=== PATIENT | female | born 1990 | race Caucasian/White ===

== ENCOUNTER 2016-09-28 11:19 | Emergency (ER) | payer SELFPAY ==
[~2016-09-28] VITALS: Ht 175.3 cm; Wt 67.6 kg
--- NOTE | 2016-09-28 11:21 | NUR ---
PT BIB PD TO ER BED 15. PER REPORT, PT ALTERED RUNNING THROUGH TRAFFIC AND JUMPING FENCES. POSSIBLE SUBSTANCE ABUSE, ABRASION NOTED TO LOWER EXTREMITIES. PLACED ON MONITOR. STABLE VITALS AT THIS TIME. AWAITING MD GOODSON.
--- NOTE | 2016-09-28 11:30 | NUR ---
TRANSPORT NURSE AT BEDSIDE FOR BLOOD DRAW.
[2016-09-28 11:33] LABS: BASOPHILS # (AUTO) 0.1 /CMM (0.0-0.2); BASOPHILS % (AUTO) 0.6 % (0.0-2.0); EOSINOPHILS # (AUTO) 0.1 /CMM (0.0-0.7); EOSINOPHILS % (AUTO) 0.4 % (0.0-6.0); HEMATOCRIT 39 % (33-45); HEMOGLOBIN 13.3 g/dL (11.5-14.8); LYMPHOCYTES # (AUTO) 1.7 /CMM (0.8-4.8); LYMPHOCYTES % (AUTO) 10.8 % (20.0-44.0); MEAN CORPUSCULAR HEMOGLOBIN 30 PG (26.0-33.0); MEAN CORPUSCULAR HGB CONC 34 g/dl (31.0-36.0); MEAN CORPUSCULAR VOLUME 89 fL (82-100); MONOCYTES # (AUTO) 1.3 /CMM (0.1-1.30); MONOCYTES % (AUTO) 8.4 % (2.0-12.0); NEUTROPHILS # (AUTO) 12.4 /CMM (1.8-8.9); NEUTROPHILS % (AUTO) 79.8 % (43.0-81.0); PLATELET COUNT (AUTO) 272 /CMM (150-450); RDW COEFFICIENT OF VARIATION 12.1 (11.5-15.0); RED BLOOD CELL COUNT(AUTO) 4.44 MIL/uL (4.0-5.2); WHITE BLOOD COUNT (AUTO) 15.6 K/uL (4.3-11.0)
[2016-09-28 11:43] LABS: CALCIUM, SERUM 8.4 mg/dL (8.5-10.1); CARBON DIOXIDE 24 mmol/L (21-32); CHLORIDE 102 mmol/L (98-107); CREATININE 1.2 mg/dL (0.6-1.3); GLUCOSE 107 mg/dL (74-106); POTASSIUM 3.9 mmol/L (3.5-5.1); SODIUM SERUM 138 mmol/L (136-145); UREA NITROGEN, BLOOD 20 mg/dL (7-18)
[2016-09-28 11:47] LABS: BILIRUBIN,URINE Negative (NEGATIVE); BLOOD, URINE Trace-lysed Ery/uL (NEGATIVE); KETONES,URINE Negative (NEGATIVE); LEUKOCYTE ESTERASE ,URINE Negative (NEGATIVE); NITRITE, URINE Negative (NEGATIVE); PH,URINE 5.5 (5.0-8.0); PROTEIN,URINE 100 mg/dl (NEGATIVE); UGLUCOSE Negative (NEGATIVE); UROBILINOGEN,URINE 0.2 EU/dL (0.2)
[2016-09-28 11:51] LABS: APPEARANCE,URINE SLIGHTLY CLOUDY (CLEAR); COLOR,URINE DARK YELLOW (YELLOW)
[2016-09-28 11:59] LABS: ALANINE AMINOTRANSFERASE 22 U/L (12-78); ALBUMIN 4.1 g/dL (3.4-5.0); ALCOHOL, BLOOD < 3 mg/dL (0-0); ALKALINE PHOSPHATASE 67 U/L (46-116); ASPARTATE AMINOTRANSFERASE 32 U/L (15-37); BILIRUBIN,DIRECT 0.1 mg/dL (0.0-0.2); BILIRUBIN,TOTAL 0.4 mg/dL (0.2-1.0); TOTAL PROTEIN, SERUM 7.7 g/dL (6.4-8.2)
[2016-09-28 12:00] LABS: ACETAMINOPHEN 0 ug/ml (10-30)
--- NOTE | 2016-09-28 12:00 | NUR ---
DR STARKS AT BEDSIDE FOR EVAL.
[2016-09-28 12:10] LABS: RBC,URINE 0-2 /HPF (0-2)
[2016-09-28 12:11] LABS: BACTERIA,URINE Moderate /HPF (None Seen); SQUAMOUS EPITHELIAL CELL,UR Rare /HPF (None Seen)
--- NOTE | 2016-09-28 13:31 | NUR ---
CALLED [facility] FOR PSYCH EVAL, ETA WITHIN THE HOUR
--- NOTE | 2016-09-28 14:44 | NUR ---
[facility] RN AT BEDSIDE FOR PSYCH EVAL.
--- NOTE | 2016-09-28 14:47 | NUR ---
PT WHILE BEING ASSISTED BACK TO BED FROM THE BATHROOM TRIED TO RUN, YELLING "THE POLICE IS OUT TO GET ME." "IM SORRY."
[2016-09-28] MEDS ORDERED: HALOPERIDOL LACTATE INJ 5 MG/ML VIAL ONE (14:48)
[2016-09-28] MEDS ORDERED: LORAZEPAM INJ 2 MG/ML VIAL ONE (14:48)
[2016-09-28] MEDS ORDERED: HALOPERIDOL LACTATE INJ 5 MG/ML VIAL IM ONE (15:00)
[2016-09-28] MEDS ORDERED: LORAZEPAM INJ 2 MG/ML VIAL IM ONE (15:00)
--- NOTE | 2016-09-28 16:13 | NUR ---
PT TO RADIOLOGY FOR HEAD CT SCAN VIA [facility].
--- NOTE | 2016-09-28 20:00 | NUR ---
TRACII BACK AT BEDSIDE FOR PSYCH RE EVAL.
--- NOTE | 2016-09-28 20:36 | NUR ---
MEDICALLY AND PSYCH CLEARED. PT IS AAOX3, AMBULATORY W/ STEADY GAIT. STATES WILL GO TO A FRIENDS HOUSE. PROVIDED W/ REFFERAL. D/C HOME IN STABLE CONDITION.
[2016-09-28 20:39] VITALS: BP 132/76
== END 2016-09-28 20:39 | disposition home or self-care (01) ==
LOC: EDBD 11:21 → ER 11:21
DX: F29 Unspecified psychosis not due to a substance or known physiological condition (principal); R41.82 Altered mental status, unspecified; R45.1 Restlessness and agitation; F19.10 Other psychoactive substance abuse, uncomplicated; F17.200 Nicotine dependence, unspecified, uncomplicated
CPT/HCPCS: 36415; 70450; 80048; 80076; 80305; 81001; 82962; 84703; 85025; 87086; 96372 ×2; 99285; A4606; G0480 ×2; J1630 ×2; J2060 ×2; Z7610; 81000-TC

== ENCOUNTER 2017-01-10 09:12 | Inpatient (IN) | payer MEDICAID ==
[2017-01-10] VITALS (18 sets, daily range): BP systolic 94–140; BP diastolic 15–76
[~2017-01-10] VITALS: Ht 177.8 cm; Wt 71.7 kg
--- NOTE | 2017-01-10 08:00 | NUR ---
GEOGRAPHIC ANALYST: pt.is drowsy, able to awake up with touch, Ox1, no c/o pain, SR, SBP over 100, O2 gerard. over 96% on r/a, able urinate by report, edema 1+ around lips, arm 1+, sluggish light redness rash over arms, chest, rash is better by report/no hives, no SOB, no itching
--- NOTE | 2017-01-10 08:05 | NUR ---
MANAGER GOLF: skin: B.heels s/p open wounds/shoes using - has dry scabs per night nurse report
[2017-01-10] MEDS ORDERED: diphenhydrAMINE HCL 50 MG/ML VIAL ONE (10:06)
[2017-01-10] MEDS: FAMOTIDINE/PF INJ 20 MG/2 ML VIAL IV SCH ×2 (10:08→16:58)
[2017-01-10] MEDS ORDERED: methylPREDNISolone SOD SUCC 40 MG/ML VIAL ONE (10:08)
[2017-01-10] MEDS ORDERED: FAMOTIDINE/PF INJ 20 MG/2 ML VIAL IV ONE (10:09)
--- NOTE | 2017-01-10 10:15 | NUR ---
POWER SAW OPERATOR: meditech/eMAR is still shot down, [id number] meds were override/gave: Solumedrol 60mg IV x one, Benadryl 50mg IV x one, Pepcid 20mg IV x one, pharmacy, charge nurse were updated,
[2017-01-10] MEDS ORDERED: ACETAMINOPHEN ES 500 MG TABLET PO PRN (10:30)
[2017-01-10] MEDS ORDERED: HYDROCODONE/APAP 5/325MG 1 EACH TABLET PO PRN (10:30)
[2017-01-10 10:57] LABS: WHITE BLOOD COUNT (AUTO) 16.5 K/uL (4.3-11.0)
[2017-01-10 10:58] LABS: HEMATOCRIT 45 % (33-45); HEMOGLOBIN 14.7 g/dL (11.5-14.8); MEAN CORPUSCULAR HEMOGLOBIN 29 PG (26.0-33.0); MEAN CORPUSCULAR HGB CONC 33 g/dl (31.0-36.0); MEAN CORPUSCULAR VOLUME 88 fL (82-100); RED BLOOD CELL COUNT(AUTO) 5.06 MIL/uL (4.0-5.2)
[2017-01-10 10:59] LABS: BASOPHILS % (AUTO) 0.8 % (0.0-2.0); LYMPHOCYTES % (AUTO) 2.3 % (20.0-44.0); MONOCYTES % (AUTO) 3.2 % (2.0-12.0); NEUTROPHILS % (AUTO) 93.7 % (43.0-81.0); PLATELET COUNT (AUTO) 263 /CMM (150-450)
--- NOTE | 2017-01-10 11:31 | NUR ---
SCHOOL SECRETARY: pt.is still drowsy, getting Benadryl, able to awake up by name, touch, O2 sat. 94-98% on O2 r/a, RR WNL, SR, SBP over 100, no c/o pain, same skin status
[2017-01-10 11:46] LABS: BILIRUBIN,TOTAL 0.4 mg/dL (0.2-1.0); CALCIUM, SERUM 7.6 mg/dL (8.5-10.1); CREATININE 0.8 mg/dL (0.6-1.3); POTASSIUM 3.7 mmol/L (3.5-5.1)
[2017-01-10 11:47] LABS: ALBUMIN 2.8 g/dL (3.4-5.0); TOTAL PROTEIN, SERUM 5.6 g/dL (6.4-8.2)
[2017-01-10] MEDS ORDERED: diphenhydrAMINE HCL 50 MG/ML VIAL IV SCH (12:00)
[2017-01-10] MEDS: methylPREDNISolone SOD SUCC 125 MG/2ML VIAL IV SCH ×2 (13:14→18:45)
[2017-01-10] MEDS: diphenhydrAMINE HCL 50 MG/ML VIAL IV SCH ×2 (13:15→18:39)
--- NOTE | 2017-01-10 14:16 | NUR ---
ORTHOPEDIC BRACE MAKER - BG - Received 26 year old female patient with dx of allergic reaction r/t marijuana use. I was able to contact patient's mother Alicja Desouza ([phone]) who lives in [place]. She was the one who gave me the medical and family history as patient is too confused to answer questions herself. According to the mother, her daughter has a history of cutting herself but to her knowledge had never attempted suicide. A gentleman named Delio called this morning to ask about the condition of the patient. He told me that last night, Ms Parkinson phoned him and asked him to pick her up at a friend's house in [place]. He was unsure about what prompted her to call him. He was going to bring her back to his apartment to stay the night since, according to him, she had no where else to go. According to Delio, patient may be homeless - but it is not confirmed. Upon arrival to the apartment, Ms Parkinson took a shower. As she was toweling herself off, she became short of breath. She told him that she needed to take a benadryl tablet which she did. However, after several more minutes, the shortness of breath got much worse. He brought her to the ER at approximately 0100 this morning. He stayed with her in the ER until 0500 because he had to leave for work. When he called this mornign about 11:00,he was very concerned about her condition and wanted to know the visiting hours. I gave him the hours for visitation.
--- NOTE | 2017-01-10 14:51 | NUR ---
CEMETERY MANAGER - BG - Patient is much more awake now and was able to get out of bed and use the bedpan. 500 cc of brooke urine out. I asked her if she had a place to live and she told me it was 4 miles away. She is speaking more clearly and wanted to use her cell phone. I gave her the phone and set her purse on the bedside table so it is within her reach. I taught her how to use the call light and told her to call me if she needed to get out of bed. I collected urine in case we got an order for toxicology screening.
[2017-01-10] MEDS: IV 1/2NS 1000 ML 1,000 ML IV SCH ×2 (15:32→21:52)
--- NOTE | 2017-01-10 15:34 | NUR ---
HONEYCOMB BLANKET MAKER: pt.is more active, able to urinate (500ml out), coordinate activity+, cooperative, no c/o now, no pain, SR, SBP over 100, O2 sat. WNL on r/a, no acute rash, refused for food now/sleepy, is not getting IVF, was updated with above, ordered: start 1/2NS @125ml/h, send urine for toxicology, transfer to Tele
--- NOTE | 2017-01-10 18:27 | NUR ---
COMMUNITY THEATER ACTOR- BG- Patient is requesting to go outside and smoke. We explained to her that she was not able to leave the ICU because it was unsafe for her to be off monitor. Heart rate still around 100 bpm. BP and O2 sats are good. Patient ate 100% of her dinner. She told me that she might have to leave AMA because she needed to smoke. I offered her a nicotine patch which she refused. I explained the importance of staying in the ICU.
--- NOTE | 2017-01-10 19:01 | NUR ---
At about 18:45, patient was standing next to bed and had taken off her BP cuff and pulse oximeter. There was a cigarette suede cleaner on the bed. I asked her if she was planning to smoke here and she insisted that she had to leave because she had a lot of things to do. One of them was a court appearance that she apparently missed today. I asked how she planned on getting home and she said that she could call someone. The charge nurse. Alma Delia, spoke with her and patient decided to stay. There are transfer orders to Telemetry and patient will be transferred when a bed is available.
--- NOTE | 2017-01-10 19:27 | NUR ---
Report was given to Hina in Telemetry and patient will be transferred there by air hose coupler RN.
--- NOTE | 2017-01-10 19:40 | NUR ---
HYDRAULIC CHAIR ASSEMBLER NOTES RECEIVED PTS AND REPORT FROM [facility] ICU NURSE , PTS ON TELE STATUS WITH DX OF ALLERGIC REACTION . PTS IS ALERT AND ORIENTED X3 ABLE TO MAKE NEEDS KNOWN . ON TELE SR ON THE MONITOR , NO SOB NO DISTRESS NOTED NO COMPLAIN OF PAIN BREATHING EVEN UNLABORED .ON R/A SAting 100%. PTS IS AMBULATORY , WITH R AC G#18 INTACT AND PATENT ON 1/2 NS AT 125CC/HR INFUSING WELL TOLERATED BY PTS. PTS WANT TO SMOKE , SMOKER WAIVER WAS SIGN BY PATIENT EXPLAIN R/B PTS VERBALIZED UNDERSTANDING. ALL NEEDS ATTENDED TOO CALL LIGHT WITHIN REACH ALL DUE MEDS GIVEN ORDERED KEPT PTS CLEAN DRY AND COMFORTABLE, V/S STABLE AFEBRILE , WILL CONTINUE TO MONITOR PTS.
[2017-01-11] VITALS: BP 95/45
--- NOTE | 2017-01-11 | NUR ---
cable television installer notes due meds benadryl and solu medrol given as ordered, pts comfortably resting in bed.
[2017-01-11] MEDS: diphenhydrAMINE HCL 50 MG/ML VIAL IV SCH ×2 (00:23→05:10)
[2017-01-11] MEDS: methylPREDNISolone SOD SUCC 125 MG/2ML VIAL IV SCH ×2 (00:23→05:10)
[2017-01-11 04:00] VITALS: BP 119/69
[2017-01-11] MEDS: IV 1/2NS 1000 ML 1,000 ML IV SCH (05:43)
[2017-01-11 06:49] LABS: BASOPHILS # (AUTO) 0.1 /CMM (0.0-0.2); BASOPHILS % (AUTO) 0.5 % (0.0-2.0); EOSINOPHILS % (AUTO) 0.1 % (0.0-6.0); HEMATOCRIT 34 % (33-45); HEMOGLOBIN 11.7 g/dL (11.5-14.8); LYMPHOCYTES # (AUTO) 0.6 /CMM (0.8-4.8); LYMPHOCYTES % (AUTO) 4.7 % (20.0-44.0); MEAN CORPUSCULAR HEMOGLOBIN 30 PG (26.0-33.0); MEAN CORPUSCULAR HGB CONC 34 g/dl (31.0-36.0); MEAN CORPUSCULAR VOLUME 88 fL (82-100); MONOCYTES # (AUTO) 0.2 /CMM (0.1-1.30); MONOCYTES % (AUTO) 1.3 % (2.0-12.0); NEUTROPHILS # (AUTO) 12.3 /CMM (1.8-8.9); NEUTROPHILS % (AUTO) 93.4 % (43.0-81.0); PLATELET COUNT (AUTO) 226 /CMM (150-450); RDW COEFFICIENT OF VARIATION 13.3 (11.5-15.0); RED BLOOD CELL COUNT(AUTO) 3.86 MIL/uL (4.0-5.2); WHITE BLOOD COUNT (AUTO) 13.1 K/uL (4.3-11.0)
--- NOTE | 2017-01-11 07:03 | NUR ---
bertin rn notes pts remains on bed awake alert and responsive , no significance change noted , pts remains on 04/15 ns at 125 cc/hr infusing well. will endorse to rn day shift for continuity of care.
--- NOTE | 2017-01-11 07:50 | NUR ---
RN SKYLER: pt.is sleepy, awake up well/Ox2, no pain, no c/o, skin: no acute rash, no edema, O2sat. WNL over night by report, SR, SBP over 100, getting 1/2NS @125ml/h, tolerated well for activity, no fall risk over night per report, instructed pt.for fall/injury prevention measures, pt.verbalized understanding, cooperative now
[2017-01-11 08:00] VITALS: BP 125/70
[2017-01-11] MEDS: FAMOTIDINE/PF INJ 20 MG/2 ML VIAL IV SCH (08:00)
[2017-01-11 08:23] LABS: ALBUMIN 3.2 g/dL (3.4-5.0); BILIRUBIN,TOTAL 0.3 mg/dL (0.2-1.0); CALCIUM, SERUM 8.4 mg/dL (8.5-10.1); CREATININE 0.6 mg/dL (0.6-1.3); POTASSIUM 4.5 mmol/L (3.5-5.1); TOTAL PROTEIN, SERUM 6.6 g/dL (6.4-8.2)
[2017-01-11] MEDS ORDERED: diphenhydrAMINE HCL 50 MG/ML VIAL IV SCH (12:00)
--- NOTE | 2017-01-11 13:55 | NUR ---
RN SKYLER: pt.began restless, uncooperative, wants to go smoke, refused for nicotine patch, charge nurse notified, ok to go to smoking area with FOREST FIRE PREVENTION SPECIALIST Yevgeniy, pt.is notified to be ready sign leaving the hospital against medical advice or Tx, pt.was instructed with details for risks in case for Tx refuse
--- NOTE | 2017-01-11 15:20 | NUR ---
DISH MACHINE OPERATOR: pt.refused for Tx, wants to leave hospital, was notified and ok for AMA form leaving, pt.signed leaving AMA form, got all belongies, discharge packet, no any c/o now
[2017-01-11] MEDS ORDERED: methylPREDNISolone SOD SUCC 125 MG/2ML VIAL IV SCH (17:00)
[2017-01-13 14:14] LABS: *SPE A/G RATIO 1.2 (0.7-1.7); *SPE ALBUMIN 3.3 g/dL (2.9-4.4); *SPE ALPHA-1-GLOBULIN 0.2 g/dL (0.0-0.4); *SPE ALPHA-2-GLOBULIN 0.6 g/dL (0.4-1.0); *SPE BETA GLOBULIN 0.8 g/dL (0.7-1.3); *SPE GLOBULIN, TOTAL 2.7 g/dL (2.2-3.9); *SPE M-SPIKE Not Observed g/dL (Not Observed); *SPEGAMMA GLOBULIN 1.1 g/dL (0.4-1.8)
[2017-01-14 15:13] LABS: COMPLEMENT C4, SERUM 14 mg/dL (14-44)
== END 2017-01-11 16:46 | disposition left against medical advice (07) | DRG 811 ==
LOC: ICU 09:12 → TELE1 19:35 → MEDSG1 01-11 10:22
PROVIDERS: ADMIT Internal Medicine; ATTEND Internal Medicine
DX: T78.2XXA Anaphylactic shock, unspecified, initial encounter (principal); G93.41 Metabolic encephalopathy; D72.828 Other elevated white blood cell count; Z86.59 Personal history of other mental and behavioral disorders
CPT/HCPCS: 36415; 80053-TC; 80305; 84155; 84165; 85025-TC; 85652-TC; 86140-TC; 86160; 87081-TC; A4606; J1200; J2920; J2930; J3490; Z7610